=== PATIENT | female | born 1965 | race Caucasian/White ===

== ENCOUNTER 2017-09-01 19:13 | Emergency (ER) | payer OTHER ==
[~2017-09-01] VITALS: Ht 165.1 cm; Wt 47.6 kg
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
[2017-09-01] MEDS ORDERED: ONDANSETRON HCL/PF 4 MG/2 ML VIAL ONE (22:33)
[2017-09-01] MEDS ORDERED: IV NS 0.9% 1,000 ML BAG IV ONE (23:30)
[2017-09-01] MEDS ORDERED: ONDANSETRON HCL/PF 4 MG/2 ML VIAL IVP ONE (23:30)
[2017-09-01] MEDS ORDERED: CHLORDIAZEPOXIDE HCL 25 MG CAPSULE PO ONE (23:30)
[2017-09-01] MEDS ORDERED: CHLORDIAZEPOXIDE HCL 25 MG CAPSULE ONE ×2 (23:42→23:45)
[2017-09-02 00:33] VITALS: BP 132/82
--- NOTE | 2017-09-02 00:33 | NUR ---
Patient discharged to home in stable condition. Written and verbal after care instructions given. Patient verbalizes understanding of instruction.IV removed. Catheter intact and site benign. Pressure and 4x4 applied to site. No bleeding noted. PT ambulatory with a steady gait VITAL SIGNS WITHIN NORMAL LIMITS.
== END 2017-09-02 00:43 | disposition home or self-care (01) ==
LOC: ER 19:17
DX: F10.10 Alcohol abuse, uncomplicated (principal); R41.82 Altered mental status, unspecified; Z88.2 Allergy status to sulfonamides
CPT/HCPCS: 70450-TC; 70486-TC; A4606; J2405; Z7610

== ENCOUNTER 2017-10-12 04:04 | Emergency (ER) | payer OTHER ==
[~2017-10-12] VITALS: Ht 165.1 cm; Wt 50.8 kg
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
[2017-10-12 04:10] VITALS: BP 162/79
[2017-10-12] MEDS ORDERED: TDAP [DIPH/PERTUSSIS/TET] 0.5 ML VIAL IM ONE (05:00)
--- NOTE | 2017-10-12 05:00 | NUR ---
Patient is resting comfortably in bed with eyes closed. Easily aroused. VSS
--- NOTE | 2017-10-12 06:30 | NUR ---
Patient eloped from facility. ER MD notified. Discharge instructions were printed by MD. Pt left without discharge instructions or ordered medication. MD made aware.
== END 2017-10-12 06:35 | disposition left against medical advice (07) ==
LOC: ER 04:05
DX: S00.03XA Contusion of scalp, initial encounter (principal); F10.10 Alcohol abuse, uncomplicated; Z88.2 Allergy status to sulfonamides; W18.39XA Other fall on same level, initial encounter; Y93.89 Activity, other specified; Y92.89 Other specified places as the place of occurrence of the external cause; Y99.8 Other external cause status
CPT/HCPCS: 70450; 72125; 82962; 99284; A4606; A6403; Z7610

== ENCOUNTER 2020-06-03 14:45 | Emergency (ER) | payer BC, OTHER ==
[~2020-06-03] VITALS: Ht 165.1 cm; Wt 45.4 kg
[2020-06-03] MEDS ORDERED: TDAP [DIPH/PERTUSSIS/TET] 0.5 ML VIAL IM ONE ×2 (15:30→15:33)
[2020-06-03] MEDS ORDERED: ACETAMINOPHEN ES 500 MG TABLET PO ONE (15:30)
[2020-06-03] MEDS ORDERED: ACETAMINOPHEN ES 500 MG TABLET ONE (15:33)
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
--- NOTE | 2020-06-03 16:40 | NUR ---
Patient discharged to home in stable condition. Written and verbal after care instructions given. Patient verbalizes understanding of instruction.
[2020-06-03 16:41] VITALS: BP 132/77
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
== END 2020-06-03 16:41 | disposition home or self-care (01) ==
LOC: ER 14:48
DX: S01.111A Laceration without foreign body of right eyelid and periocular area, initial encounter (principal); S09.8XXA Other specified injuries of head, initial encounter; T51.8X1A Toxic effect of other alcohols, accidental (unintentional), initial encounter; Z88.2 Allergy status to sulfonamides; W18.39XA Other fall on same level, initial encounter; Y93.89 Activity, other specified; Y92.89 Other specified places as the place of occurrence of the external cause; Y99.8 Other external cause status
CPT/HCPCS: 70450-TC; 90715

== ENCOUNTER 2020-06-05 00:01 | Observation (INO) | payer OTHER ==
[~2020-06-05] VITALS: Ht 165.1 cm; Wt 49.0 kg
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
--- NOTE | 2020-06-05 00:51 | NUR ---
PT TAKEN TO RADIOLOGY FOR CT
--- NOTE | 2020-06-05 01:30 | NUR ---
PT LACERATION CLEANED, GLUED, AND WRAPPED IN NON-ADHERENT DRESSING AND 3" KERLIX. PT ALSO GIVEN ICE PACK FOR HEMATOMA/SWELLING.
--- NOTE | 2020-06-05 02:36 | NUR ---
[facility] AT BEDSIDE
--- NOTE | 2020-06-05 04:05 | NUR ---
CALLED [facility] FOR PANEL ADMISSION. WAITING FOR CALL BACK.
[2020-06-05] MEDS ORDERED: MAGNESIUM HYDROXIDE 30 ML UDC PO PRN (05:30)
[2020-06-05] MEDS ORDERED: ONDANSETRON HCL/PF 4 MG/2 ML VIAL IVP PRN (05:30)
[2020-06-05] MEDS ORDERED: Z GUARD REMEDY 2 OZ OINT TP PRN (05:30)
[2020-06-05] MEDS ORDERED: MAG HYDROX/AL HYDROX/SIMETH 30 ML UDC PO PRN (05:30)
[2020-06-05] MEDS ORDERED: ACETAMINOPHEN 325 MG TABLET PO PRN (05:30)
[2020-06-05] MEDS ORDERED: IV NS 0.9% 1,000 ML IV PRN (05:30)
--- NOTE | 2020-06-05 06:52 | NUR ---
PT AAOX4, VSS, RESPIRATIONS EVEN ADN UNLABORED ON RA W/ NAD NOTED. PT CONNECTED TO THE MONITOR AND POX. CALL LIGHT WITHIN REACH.
--- NOTE | 2020-06-05 08:12 | NUR ---
Report given by Trini NAIR for Admission .
--- NOTE | 2020-06-05 08:14 | NUR ---
Patient asleep ,arousable answer yes and no question and fall back to sleep vitals taken and filed continue to monitor .
--- NOTE | 2020-06-05 08:21 | NUR ---
Patient refused saline lock explained importance x2 .
[2020-06-05] MEDS ORDERED: IV NS 0.9% 1,000 ML BAG IV ONE (10:00)
--- NOTE | 2020-06-05 10:03 | NUR ---
[facility] WAS CALLED. PT WANTS TO BE PICKED UP. [phone]
--- NOTE | 2020-06-05 10:31 | NUR ---
Blood drawn obtained and send to lab .
[2020-06-05 10:42] LABS: BASOPHILS % (AUTO) 0.8 % (0.0-2.0); EOSINOPHILS % (AUTO) 0.8 % (0.0-6.0); HEMATOCRIT 44 % (33-45); HEMOGLOBIN 14.7 g/dL (11.5-14.8); LYMPHOCYTES # (AUTO) 2.2 /CMM (0.8-4.8); MEAN CORPUSCULAR HGB CONC 34 g/dl (31.0-36.0); MEAN CORPUSCULAR VOLUME 96 fL (82-100); MONOCYTES # (AUTO) 0.3 /CMM (0.1-1.30); MONOCYTES % (AUTO) 5.1 % (2.0-12.0); NEUTROPHILS # (AUTO) 2.5 /CMM (1.8-8.9); NEUTROPHILS % (AUTO) 49.3 % (43.0-81.0); PLATELET COUNT (AUTO) 79 /CMM (150-450); RED BLOOD CELL COUNT(AUTO) 4.54 MIL/uL (4.0-5.2); WHITE BLOOD COUNT (AUTO) 5.1 K/uL (4.3-11.0)
--- NOTE | 2020-06-05 10:43 | NUR ---
Patient awake noted able to ambulated to bathroom back to bed IVF infusing well .
[2020-06-05 10:47] LABS: CALCIUM, SERUM 8.3 mg/dL (8.5-10.1); CREATININE 0.7 mg/dL (0.6-1.3); POTASSIUM 4.1 mmol/L (3.5-5.1)
[2020-06-05 10:54] LABS: ALBUMIN 3.8 g/dL (3.4-5.0); BILIRUBIN,DIRECT 0.1 mg/dL (0.0-0.2); BILIRUBIN,TOTAL 0.6 mg/dL (0.2-1.0)
[2020-06-05 11:10] LABS: EOSINOPHILS % (MANUAL) 1 % (0-4); LYMPHOCYTES % (MANUAL) 36 % (16-48); MONOCYTES % (MANUAL) 4 % (0-11.0); NEUTROPHILS % (MANUAL) 60 (42-76)
--- NOTE | 2020-06-05 11:34 | NUR ---
Patient awake alert non distress noted able to ambulated non difficulties
--- NOTE | 2020-06-05 11:41 | NUR ---
I removed saline lock to left hand noted cath intact no edema no pain .
[2020-06-05 11:43] VITALS: BP 110/67
--- NOTE | 2020-06-05 11:43 | NUR ---
Patient agrees to follow up PMD in 2 days and wound check.
--- NOTE | 2020-06-05 11:44 | NUR ---
Patient is AMA signed .
--- NOTE | 2020-06-05 11:45 | NUR ---
Her son here to pick her up drive home . Thank you .
== END 2020-06-05 12:00 | disposition home or self-care (01) ==
LOC: ER 00:02 → UNDOADMIN 02:39 → TRANSITION 02:39 → OBSER 08:20 → UNDODISIN 11:45 → TRANSITION 11:48
PROVIDERS: ADMIT Internal Medicine; ATTEND Internal Medicine
DX: F10.129 Alcohol abuse with intoxication, unspecified (principal); Y90.8 Blood alcohol level of 240 mg/100 ml or more; D69.59 Other secondary thrombocytopenia; R73.9 Hyperglycemia, unspecified; R74.01 Elevation of levels of liver transaminase levels; Z82.49 Family history of ischemic heart disease and other diseases of the circulatory system; S01.111A Laceration without foreign body of right eyelid and periocular area, initial encounter; Y09 Assault by unspecified means; Y93.9 Activity, unspecified; Y92.9 Unspecified place or not applicable; Z88.2 Allergy status to sulfonamides
CPT/HCPCS: G0168 ×18; 36415; 70450-TC; 70486-TC; 80048-TC; 80076-TC; 83690-TC; 85025-TC; A6403; G0378; G0480; J7030